=== PATIENT | female | born 1970 | race Caucasian/White ===

== ENCOUNTER 2020-08-25 12:47 | Observation (INO) | payer BC ==
--- NOTE | 2020-08-25 13:00 | EDM.PDOC ---
ED HPI GENERAL MEDICAL PROBLEM - General Chief Complaint: Gastrointestinal Problem Stated Complaint: N/V, DIARRHEA Time Seen by Provider: 08/25/20 12:56 Source of Information: Reports: Patient History Limitations: Reports: No Limitations - History of Present Illness INITIAL COMMENTS - FREE TEXT/NARRATIVE: HISTORY AND PHYSICAL: History of present illness: Patient is a 50-year-old female who presents to the emergency room with complaints of nausea, vomiting and diarrhea that started at 1 AM this morning. She states she went to bed feeling fine but was woken up with nausea and diarrhea. She has generalized abdominal pain and is concerned she may have a bowel obstruction. 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 Patient denies any fever, chills, headache, change in vision, syncope or near syncope. Denies any chest pain, back pain, shortness of breath or cough. Denies any constipation or dysuria. Has not noted any blood in urine or stool. Patient has been eating and drinking appropriately. Review of systems: As per history of present illness and below otherwise all systems reviewed and negative. Past medical history: As per history of present illness and as reviewed below otherwise noncontributory. Surgical history: As per history of present illness and as reviewed below otherwise noncontributory. Social history: See social history for further information Family history: As per history of present illness and as reviewed below otherwise noncontributory. Physical exam: General: Well developed and well nourished 50 year old female. Alert and orientated x 3. Nontoxic in appearance and in no acute distress. Vital signs are stable and have been reviewed by me. Nursing notes were reviewed. HEENT: Atraumatic, normocephalic, pupils equal and reactive bilaterally, negative for conjunctival pallor or scleral icterus, mucous membranes moist, TMs normal bilaterally, throat clear, neck supple, nontender, trachea midline. No drooling or trismus noted. No meningeal signs. No hot potato voice noted. Lungs: Clear to auscultation bilaterally. No wheezes, rales, or rhonchi. Chest nontender. Normal work of breathing, no accessory muscles used. Heart: S1S2, regular rate and rhythm without overt murmur, gallops, or rubs. No JVD. No peripheral edema Abdomen: Soft, nondistended, nontender. Normoactive bowel sounds. Negative for masses or costovertebral tenderness. Skin: Intact, warm, dry. No lesions or rashes noted. Hematologic: No petechiae or purpra. Mucosa appropriate color and normal nail bed color and refill. Extremities: Atraumatic, moves all extremities per self without difficulty or deficits, negative for cords or calf pain. Neurovascular unremarkable. Neuro: Awake, alert, oriented. Cranial nerves II through XII unremarkable. Cerebellum unremarkable. Motor and sensory unremarkable throughout. Exam nonfocal. Psychiatric: Mood and affect are appropriate. Normal thought process. Answering questions appropriately. Notes: *This patient was seen and evaluated during the 2019 SARS-CoV-2 novel coronavirus pandemic period. Community viral transmission is ongoing at time of this encounter and the emergency department is operating under pandemic response procedures. Patient's physical exam demonstrates that she has some generalized abdominal tenderness. She did have a small bout of diarrhea that was liquid while here in the emergency room. The sample was sent to lab. We will do basic lab work and likely CT image of the abdomen due to her previous history. Patient is aware and agreeable to plan of care. Patient does have a leukocytosis. There was a mixup in the lab with her urine, the results were not accurate and had to be canceled. Urine reordered. Unable to do IV contrast due to her GFR, radiologist recommended CT without contrast. CT shows borderline dilated and fluid filled loops of small bowel within the mid abdomen without a transition point, findings could represent early partial small bowel obstruction versus ileus or enteritis. Probable uterine fibroid, measuring up to 4.1 cm. I spoke with Dr. Lino, hospitalist on-call about this patient. He is agreeable to keeping her for further care and management. Patient is currently NPO. Declines wanting anything additional for pain as she is comfortable until "I get moving around". I have talked with the patient about today's findings, in addition to providing specific details for plan of care. Reassessment at the time of disposition demonstrates that the patient is in no acute distress. She is agreeable to admission. Diagnostics: CBC, CMP, Lipase, UA, BC x 2, Lactate Therapeutics: IV fluids, Zofran, Morphine Impression: Partial small bowel obstruction Plan: Observation admission Definitive disposition and diagnosis as appropriate pending reevaluation and review of above. Abdomen Pain Score (Numeric/FACES): 4 - Related Data Allergies Allergy/AdvReac Type Severity Reaction Status Date / Time No Known Allergies Allergy Verified 08/25/20 13:15 Home Meds: Home Meds Lisinopril/Hydrochlorothiazide [Lisinopril-HCTZ 10-12.5 MG] 1 dose PO ASDIRECTED 08/25/20 [History] ED ROS GENERAL - Review of Systems Review Of Systems: Comprehensive ROS is negative, except as noted in HPI. ED EXAM, GI/ABD - Physical Exam Exam: See Below (See dictation) Course - Vital Signs Last Recorded V/S: Last Vital Signs Temp 96.5 F L 08/25/20 13:16 Pulse 100 08/25/20 15:29 Resp 16 08/25/20 15:29 BP 102/61 08/25/20 15:29 Pulse Ox 95 08/25/20 15:29 - Orders/Labs/Meds Orders: Active Orders 24 hr Category Date Time Status Admission Status [Patient Status] [ADT] Stat ADT 08/25/20 16:35 Ordered CAMPYLOBACTER CULT [MREF] Stat Lab 08/25/20 12:56 Received CULTURE BLOOD [BC] Stat Lab 08/25/20 13:12 Received CULTURE BLOOD [BC] Stat Lab 08/25/20 13:30 Received STOOL CULTURE/SHIGA TOXIN [MREF] Stat Lab 08/25/20 12:56 Received UA RFX JEREL AND CULT IF INDIC [URIN] Stat Lab 08/25/20 15:42 Ordered Sodium Chloride 0.9% [Normal Saline] 1,000 ml Med 08/25/20 15:01 Active IV STAT Blood Culture x2 Reflex Set [OM.PC] Stat Oth 08/25/20 13:15 Ordered Medication Orders Sodium Chloride (Normal Saline) 1,000 mls @ 125 mls/hr IV STAT ONE Stop: 08/25/20 23:00 Last Admin: 08/25/20 15:39 Dose: 125 mls/hr Documented by: HARPER Labs: Laboratory Tests 08/25/20 08/25/20 08/25/20 Range/Units 12:56 12:56 13:13 WBC 13.91 H (4.0-11.0) K/uL RBC 5.59 (4.30-5.90) M/uL Hgb 17.7 H (12.0-16.0) g/dL Hct 51.3 H (36.0-46.0) % MCV 91.8 (80.0-98.0) fL MCH 31.7 (27.0-32.0) pg MCHC 34.5 (31.0-37.0) g/dL RDW Std Deviation 47.0 (28.0-62.0) fl RDW Coeff of Craig 14 (11.0-15.0) % Plt Count 296 (150-400) K/uL MPV 12.00 (7.40-12.00) fL Neut % (Auto) 79.3 (48.0-80.0) % Lymph % (Auto) 12.1 L (16.0-40.0) % Cameron % (Auto) 4.1 (0.0-15.0) % Eos % (Auto) 4.2 (0.0-7.0) % Baso % (Auto) 0.3 (0.0-1.5) % Neut # (Auto) 11.0 H (1.4-5.7) K/uL Lymph # (Auto) 1.7 (0.6-2.4) K/uL Cameron # (Auto) 0.6 (0.0-0.8) K/uL Eos # (Auto) 0.6 (0.0-0.7) K/uL Baso # (Auto) 0.0 (0.0-0.1) K/uL Nucleated RBC % 0.0 /100WBC Nucleated RBCs # 0 K/uL Sodium (136-145) mmol/L Potassium (3.5-5.1) mmol/L Chloride (98-107) mmol/L Carbon Dioxide (21.0-32.0) mmol/L BUN (7.0-18.0) mg/dL Creatinine (0.6-1.0) mg/dL Est Cr Clr Drug Dosing mL/min Estimated GFR (MDRD) ml/min Glucose (74-106) mg/dL Lactic Acid (0.4-2.0) mmol/L Calcium (8.5-10.1) mg/dL Total Bilirubin (0.2-1.0) mg/dL AST (15-37) IU/L ALT (14-63) IU/L Alkaline Phosphatase (46-116) U/L Total Protein (6.4-8.2) g/dL Albumin (3.4-5.0) g/dL Globulin (2.6-4.0) g/dL Albumin/Globulin Ratio (0.9-1.6) Lipase (73-393) U/L Urine Color Cancelled Urine Appearance Cancelled Urine pH Cancelled Ur Specific [place] Cancelled Urine Protein Cancelled Urine Glucose (UA) Cancelled Urine Ketones Cancelled Urine Occult Blood Cancelled Urine Nitrite Cancelled Urine Bilirubin Cancelled Urine Ictotest Cancelled Urine Urobilinogen Cancelled Ur Leukocyte Esterase Cancelled U Hyaline Cast (Auto) Cancelled Urine RBC Cancelled Urine WBC Cancelled Ur Epithelial Cells Cancelled Ur Squamous Epith Cells Cancelled Ur Renal Epithelial Cell Cancelled Calcium Oxalate Crystal Cancelled Uric Acid Crystals Cancelled Triple Phos Crystals Cancelled Other Crystals Cancelled Amorphous Sediment Cancelled Urine Bacteria Cancelled Fine Granular Casts Cancelled Coarse Granular Casts Cancelled Waxy Casts Cancelled RBC Casts Cancelled WBC Casts Cancelled Urine Mucus Cancelled Urine Other Cancelled Urine Trichomonas Cancelled Urine Yeast Cancelled Urine Sperm Cancelled Ur Oval Fat Bodies Cancelled Urinalysis Comment Cancelled Urine HCG, Qual Cancelled 08/25/20 08/25/20 Range/Units 13:13 13:45 WBC (4.0-11.0) K/uL RBC (4.30-5.90) M/uL Hgb (12.0-16.0) g/dL Hct (36.0-46.0) % MCV (80.0-98.0) fL MCH (27.0-32.0) pg MCHC (31.0-37.0) g/dL RDW Std Deviation (28.0-62.0) fl RDW Coeff of Craig (11.0-15.0) % Plt Count (150-400) K/uL MPV (7.40-12.00) fL Neut % (Auto) (48.0-80.0) % Lymph % (Auto) (16.0-40.0) % Cameron % (Auto) (0.0-15.0) % Eos % (Auto) (0.0-7.0) % Baso % (Auto) (0.0-1.5) % Neut # (Auto) (1.4-5.7) K/uL Lymph # (Auto) (0.6-2.4) K/uL Cameron # (Auto) (0.0-0.8) K/uL Eos # (Auto) (0.0-0.7) K/uL Baso # (Auto) (0.0-0.1) K/uL Nucleated RBC % /100WBC Nucleated RBCs # K/uL Sodium 130 L (136-145) mmol/L Potassium 4.4 (3.5-5.1) mmol/L Chloride 100 (98-107) mmol/L Carbon Dioxide 23.1 (21.0-32.0) mmol/L BUN 33 H (7.0-18.0) mg/dL Creatinine 1.8 H (0.6-1.0) mg/dL Est Cr Clr Drug Dosing 39.54 mL/min Estimated GFR (MDRD) 29.5 ml/min Glucose 107 H (74-106) mg/dL Lactic Acid 1.6 (0.4-2.0) mmol/L Calcium 8.8 (8.5-10.1) mg/dL Total Bilirubin 0.5 (0.2-1.0) mg/dL AST 36 (15-37) IU/L ALT 47 (14-63) IU/L Alkaline Phosphatase 115 (46-116) U/L Total Protein 8.9 H (6.4-8.2) g/dL Albumin 3.4 (3.4-5.0) g/dL Globulin 5.5 H (2.6-4.0) g/dL Albumin/Globulin Ratio 0.6 L (0.9-1.6) Lipase 101 (73-393) U/L Urine Color Urine Appearance Urine pH Ur Specific [place] Urine Protein Urine Glucose (UA) Urine Ketones Urine Occult Blood Urine Nitrite Urine Bilirubin Urine Ictotest Urine Urobilinogen Ur Leukocyte Esterase U Hyaline Cast (Auto) Urine RBC Urine WBC Ur Epithelial Cells Ur Squamous Epith Cells Ur Renal Epithelial Cell Calcium Oxalate Crystal Uric Acid Crystals Triple Phos Crystals Other Crystals Amorphous Sediment Urine Bacteria Fine Granular Casts Coarse Granular Casts Waxy Casts RBC Casts WBC Casts Urine Mucus Urine Other Urine Trichomonas Urine Yeast Urine Sperm Ur Oval Fat Bodies Urinalysis Comment Urine HCG, Qual Meds: Medications Generic Name Dose Route Start Last Admin Trade Name Freq PRN Reason Stop Dose Admin Sodium Chloride 1,000 mls @ 125 mls/hr 08/25/20 15:01 08/25/20 15:39 Normal Saline IV 08/25/20 23:00 125 mls/hr STAT ONE Administration Discontinued Medications Generic Name Dose Route Start Last Admin Trade Name Best PRN Reason Stop Dose Admin Sodium Chloride 1,000 mls @ 999 mls/hr 08/25/20 13:01 08/25/20 13:31 Normal Saline IV 08/25/20 14:01 999 mls/hr STAT ONE Administration Ceftriaxone Sodium/Dextrose 1 50 mls @ 100 mls/hr 08/25/20 15:01 08/25/20 15:37 gm/ Premix IV 08/25/20 15:30 Not Given ONETIME ONE Morphine Sulfate 4 mg 08/25/20 13:05 08/25/20 13:31 Morphine 4 Mg/Ml Syringe IVPUSH 08/25/20 13:06 4 mg ONETIME ONE Administration Ondansetron HCl 4 mg 08/25/20 13:05 08/25/20 13:31 Ondansetron 4 Mg/2 Ml Sdv IVPUSH 08/25/20 13:06 4 mg ONETIME ONE Administration Departure - Departure Time of Disposition: 16:50 Disposition: Refer to Observation Clinical Impression: Partial small bowel obstruction - Discharge Information Referrals: Fransisca Joy NP [Primary Care Provider] - Forms: ED Department Discharge Sepsis Event Note (ED) - Focused Exam Vital Signs: Vital Signs Temp Pulse Resp BP Pulse Ox 08/25/20 15:29 100 16 102/61 95 08/25/20 13:16 96.5 F L 130 H 20 127/90 96 - My Orders Last 24 Hours: My Active Orders 08/25/20 12:56 CAMPYLOBACTER CULT [MREF] Stat STOOL CULTURE/SHIGA TOXIN [MREF] Stat 08/25/20 13:12 CULTURE BLOOD [BC] Stat 08/25/20 13:15 Blood Culture x2 Reflex Set [OM.PC] Stat 08/25/20 13:30 CULTURE BLOOD [BC] Stat 08/25/20 15:01 Sodium Chloride 0.9% [Normal Saline] 1,000 ml IV STAT 08/25/20 15:42 UA RFX JEREL AND CULT IF INDIC [URIN] Stat 08/25/20 16:35 Admission Status [Patient Status] [ADT] Stat - Assessment/Plan Last 24 Hours: My Active Orders 08/25/20 12:56 CAMPYLOBACTER CULT [MREF] Stat STOOL CULTURE/SHIGA TOXIN [MREF] Stat 08/25/20 13:12 CULTURE BLOOD [BC] Stat 08/25/20 13:15 Blood Culture x2 Reflex Set [OM.PC] Stat 08/25/20 13:30 CULTURE BLOOD [BC] Stat 08/25/20 15:01 Sodium Chloride 0.9% [Normal Saline] 1,000 ml IV STAT 08/25/20 15:42 UA RFX JEREL AND CULT IF INDIC [URIN] Stat 08/25/20 16:35 Admission Status [Patient Status] [ADT] Stat
[2020-08-25] MEDS ORDERED: Sodium Chloride 0.9% 1,000 ML IV ONE ×2 (13:01→15:01)
[2020-08-25] MEDS ORDERED: Ondansetron 4 MG/2 ML SDV IVPUSH ONE (13:05)
[2020-08-25] MEDS ORDERED: Morphine 4 MG/ML Syringe IVPUSH ONE (13:05)
--- NOTE | 2020-08-25 13:19 | PCM.SN.2 ---
- Free Text/Narrative Note: EKG at 1313 hrs. sinus tachycardia heart rate 122 DE interval 156. QT duration 436. [place] [place] 62. Possible left atrial enlargement. QRS normal ST and T normal no prior for comparison. Impression tachycardia with no obvious acute injury
[2020-08-25 14:35] LABS: CARBON DIOXIDE,CO2 23.1 mmol/L (21.0-32.0); POTASSIUM,K 4.4 mmol/L (3.5-5.1)
[2020-08-25] MEDS ORDERED: cefTRIAXone 1 GM in Premix Bag 1 BAG IV ONE (15:01)
--- NOTE | 2020-08-25 16:19 | CT ---
INDICATION: Abdominal pain, nausea, vomiting, concern for bowel obstruction TECHNIQUE: CT abdomen and pelvis without contrast. COMPARISON: None available FINDINGS: The visualized portions of the lung bases are clear. Evaluation of the abdominal viscera is limited due to lack of IV contrast, however the liver, spleen, pancreas and adrenal glands are unremarkable. The gallbladder is nondistended. The kidneys are negative for hydronephrosis or nephrolithiasis. The bladder is minimally distended and unremarkable. The uterus is somewhat lobulated with a larger exophytic area at the uterine fundus, measuring approximately 4.1 cm, suggestive of a uterine fibroid. There are postsurgical changes of the stomach. There is a large fat containing periumbilical hernia. The neck of the hernia measures approximately 6.0 cm. There are a few borderline dilated fluid filled loops of small bowel within the mid abdomen, measuring 3.0 cm. No abrupt transition point is visualized. Negative for intraperitoneal free air fluid. No pneumatosis or portal venous gas. The visualized osseous structures are unremarkable for patient age. IMPRESSION: 1. Borderline dilated and fluid filled loops of small bowel within the mid abdomen without a transition point, findings could represent early partial small bowel obstruction versus ileus or enteritis. 2. Probable uterine fibroid, measuring up to 4.1 cm. Please note that all CT scans at this facility use dose modulation, iterative reconstruction, and/or weight-based dosing when appropriate to reduce radiation dose to as low as reasonably achievable. Dictated by Holly White MD @ 08/25/2020 4:18:[address] Holly White @ Aug 25 2020 4:18PM
[2020-08-25] MEDS ORDERED: Ketorolac 15 MG/ML SDV IVPUSH ONE (17:00)
--- NOTE | 2020-08-25 18:09 | PCM.HP.2 ---
H&P History of Present Illness - General Date of Service: 08/25/20 Admit Problem/Dx: Admission Diagnosis/Problem Admission Diagnosis/Problem Small bowel obstruction Source of Information: Patient History Limitations: Reports: No Limitations - History of Present Illness Initial Comments - Free Text/Narative: Patient is a 50-year-old female with a significant past medical history of hypertension, gastroplasty 30 years prior, presenting to the ED this morning after being awoken in the middle the night around 1 AM with sudden onset of nausea/vomiting and diarrhea. Patient states having excess amounts of diarrhea numbering in between 15-20 times and having vomited 10-12 times since last night. Patient has had episodes like this in the past secondary to adhesions/scar tissue from previous surgeries most likely secondary to a gastroplasty from 30 years prior. Other surgical history includes tubal ligation but no other significant abdominal surgeries. Patient otherwise denies any fevers, chills, body aches, chest pain, shortness of breath, fever, chills, hematuria, urinary urgency/frequency. Up until last night she has been taking and eating appropriately without any significant issues. Patient also states that she has been on antibiotics, most likely Bactrim, for a possible skin abscess/infection over the right breast is currently alf through her course. ED course: Vitals 112/86. Pulse 97. O2 sat 95% room air. Tachycardia initially noted on arrival however had improved to 97. Abdominal CT: Borderline dilated fluid-filled loops of small bowel within the mid abdomen without a transition point, findings could represent early partial small bowel obstruction versus ileus or enteritis. 2 L NS bolus provided, one dose of morphine 4 mg/ketorolac 15. 1 g Rocephin given stool studies and UA/culture ordered. Bedside: Endorses similar story as above and abdominal pain and nausea and vomiting have improved and pain only returns with movement. Patient otherwise states that she feels thirsty but denies any significant appetite. Abdomen Pain Score (Numeric/FACES): 4 - Related Data Allergies/Adverse Reactions: Allergies Allergy/AdvReac Type Severity Reaction Status Date / Time No Known Allergies Allergy Verified 08/25/20 18:16 Home Medications: Home Meds Lisinopril/Hydrochlorothiazide [Lisinopril-Hctz 20-25 mg Tab] 20 - 25 mg PO DAILY 08/25/20 [History] Sulfamethoxazole/Trimethoprim [Sulfamethoxazole-Tmp Ds Tablet] 1 each PO DAILY 08/25/20 [History] amLODIPine [Norvasc] 5 mg PO DAILY 08/25/20 [History] Past Medical History HEENT History: Reports: Impaired Vision Cardiovascular History: Reports: Hypertension Respiratory History: Reports: None Gastrointestinal History: Reports: Bowel Obstruction Genitourinary History: Reports: None 3RD MATE History: Reports: None Musculoskeletal History: Reports: None Neurological History: Reports: None Psychiatric History: Reports: None Endocrine/Metabolic History: Reports: None Hematologic History: Reports: None Other Dermatologic History: breast cysts - Infectious Disease History Infectious Disease History: Reports: Chicken Pox Social & Family History - Tobacco Use Tobacco Use Status *Q: Current Every Day Tobacco User Years of Tobacco use: 25 Packs/Tins Daily: 1 - Caffeine Use Caffeine Use: Reports: None - Recreational Drug Use Recreational Drug Use: No H&P Review of Systems - Review of Systems: Review Of Systems: See Below General: Denies: Fever, Chills, Weakness, Fatigue HEENT: Reports: No Symptoms Pulmonary: Reports: No Symptoms Cardiovascular: Reports: No Symptoms Gastrointestinal: Reports: Abdominal Pain, Diarrhea, Flatus, Nausea. Denies: Bloody Stool, Melena, Stool Incontinence, Vomiting Genitourinary: Reports: No Symptoms Musculoskeletal: Reports: No Symptoms Psychiatric: Reports: No Symptoms Neurological: Reports: No Symptoms Exam - Exam Exam: See Below - Vital Signs Vital Signs: Last Vital Signs Temp 96.5 F L 08/25/20 13:16 Pulse 97 08/25/20 17:47 Resp 16 08/25/20 17:47 BP 112/86 08/25/20 17:47 Pulse Ox 95 08/25/20 17:47 Weight: 119.295 kg - Exam Quality Assessment: No: Supplemental Oxygen General: Alert, Oriented HEENT: EOMI Neck: Supple, Trachea Midline Lungs: Normal Respiratory Effort, Other (mild wheeze in anterior lung justice ) Cardiovascular: Regular Rate, Regular Rhythm GI/Abdominal Exam: Soft, Other (no tenderness w. deep palaption; pain mostly in periumbilical region; no flank tendernessl; large vertical scarno rosales in mid abdomen from previous gastroplasty ) Extremities: Normal Inspection Skin: Warm Neurological: Cranial Nerves Intact Psychiatric: Alert, Normal Mood (obeses female /morbid ) - Patient Data Lab Results Last 24 hrs: Laboratory Results - last 24 hr 08/25/20 08/25/20 08/25/20 Range/Units 12:56 12:56 13:13 WBC 13.91 H (4.0-11.0) K/uL RBC 5.59 (4.30-5.90) M/uL Hgb 17.7 H (12.0-16.0) g/dL Hct 51.3 H (36.0-46.0) % MCV 91.8 (80.0-98.0) fL MCH 31.7 (27.0-32.0) pg MCHC 34.5 (31.0-37.0) g/dL RDW Std Deviation 47.0 (28.0-62.0) fl RDW Coeff of Craig 14 (11.0-15.0) % Plt Count 296 (150-400) K/uL MPV 12.00 (7.40-12.00) fL Neut % (Auto) 79.3 (48.0-80.0) % Lymph % (Auto) 12.1 L (16.0-40.0) % [place] % (Auto) 4.1 (0.0-15.0) % Eos % (Auto) 4.2 (0.0-7.0) % Baso % (Auto) 0.3 (0.0-1.5) % Neut # (Auto) 11.0 H (1.4-5.7) K/uL Lymph # (Auto) 1.7 (0.6-2.4) K/uL [place] # (Auto) 0.6 (0.0-0.8) K/uL Eos # (Auto) 0.6 (0.0-0.7) K/uL Baso # (Auto) 0.0 (0.0-0.1) K/uL Nucleated RBC % 0.0 /100WBC Nucleated RBCs # 0 K/uL Sodium (136-145) mmol/L Potassium (3.5-5.1) mmol/L Chloride (98-107) mmol/L Carbon Dioxide (21.0-32.0) mmol/L BUN (7.0-18.0) mg/dL Creatinine (0.6-1.0) mg/dL Est Cr Clr Drug Dosing mL/min Estimated GFR (MDRD) ml/min Glucose (74-106) mg/dL Lactic Acid (0.4-2.0) mmol/L Calcium (8.5-10.1) mg/dL Total Bilirubin (0.2-1.0) mg/dL AST (15-37) IU/L ALT (14-63) IU/L Alkaline Phosphatase (46-116) U/L Total Protein (6.4-8.2) g/dL Albumin (3.4-5.0) g/dL Globulin (2.6-4.0) g/dL Albumin/Globulin Ratio (0.9-1.6) Lipase (73-393) U/L Urine Color Cancelled Urine Appearance Cancelled Urine pH Cancelled Ur Specific [place] Cancelled Urine Protein Cancelled Urine Glucose (UA) Cancelled Urine Ketones Cancelled Urine Occult Blood Cancelled Urine Nitrite Cancelled Urine Bilirubin Cancelled Urine Ictotest Cancelled Urine Urobilinogen Cancelled Ur Leukocyte Esterase Cancelled U Hyaline Cast (Auto) Cancelled Urine RBC Cancelled Urine WBC Cancelled Ur Epithelial Cells Cancelled Ur Squamous Epith Cells Cancelled Ur Renal Epithelial Cell Cancelled Calcium Oxalate Crystal Cancelled Uric Acid Crystals Cancelled Triple Phos Crystals Cancelled Other Crystals Cancelled Amorphous Sediment Cancelled Urine Bacteria Cancelled Fine Granular Casts Cancelled Coarse Granular Casts Cancelled Waxy Casts Cancelled RBC Casts Cancelled WBC Casts Cancelled Urine Mucus Cancelled Urine Other Cancelled Urine Trichomonas Cancelled Urine Yeast Cancelled Urine Sperm Cancelled Ur Oval Fat Bodies Cancelled Urinalysis Comment Cancelled Urine HCG, Qual Cancelled SARS-CoV-2 RNA (SHELL) (NEGATIVE) 08/25/20 08/25/20 08/25/20 Range/Units 13:13 13:45 16:36 WBC (4.0-11.0) K/uL RBC (4.30-5.90) M/uL Hgb (12.0-16.0) g/dL Hct (36.0-46.0) % MCV (80.0-98.0) fL MCH (27.0-32.0) pg MCHC (31.0-37.0) g/dL RDW Std Deviation (28.0-62.0) fl RDW Coeff of Craig (11.0-15.0) % Plt Count (150-400) K/uL MPV (7.40-12.00) fL Neut % (Auto) (48.0-80.0) % Lymph % (Auto) (16.0-40.0) % [place] % (Auto) (0.0-15.0) % Eos % (Auto) (0.0-7.0) % Baso % (Auto) (0.0-1.5) % Neut # (Auto) (1.4-5.7) K/uL Lymph # (Auto) (0.6-2.4) K/uL [place] # (Auto) (0.0-0.8) K/uL Eos # (Auto) (0.0-0.7) K/uL Baso # (Auto) (0.0-0.1) K/uL Nucleated RBC % /100WBC Nucleated RBCs # K/uL Sodium 130 L (136-145) mmol/L Potassium 4.4 (3.5-5.1) mmol/L Chloride 100 (98-107) mmol/L Carbon Dioxide 23.1 (21.0-32.0) mmol/L BUN 33 H (7.0-18.0) mg/dL Creatinine 1.8 H (0.6-1.0) mg/dL Est Cr Clr Drug Dosing 39.54 mL/min Estimated GFR (MDRD) 29.5 ml/min Glucose 107 H (74-106) mg/dL Lactic Acid 1.6 (0.4-2.0) mmol/L Calcium 8.8 (8.5-10.1) mg/dL Total Bilirubin 0.5 (0.2-1.0) mg/dL AST 36 (15-37) IU/L ALT 47 (14-63) IU/L Alkaline Phosphatase 115 (46-116) U/L Total Protein 8.9 H (6.4-8.2) g/dL Albumin 3.4 (3.4-5.0) g/dL Globulin 5.5 H (2.6-4.0) g/dL Albumin/Globulin Ratio 0.6 L (0.9-1.6) Lipase 101 (73-393) U/L Urine Color Urine Appearance Urine pH Ur Specific [place] Urine Protein Urine Glucose (UA) Urine Ketones Urine Occult Blood Urine Nitrite Urine Bilirubin Urine Ictotest Urine Urobilinogen Ur Leukocyte Esterase U Hyaline Cast (Auto) Urine RBC Urine WBC Ur Epithelial Cells Ur Squamous Epith Cells Ur Renal Epithelial Cell Calcium Oxalate Crystal Uric Acid Crystals Triple Phos Crystals Other Crystals Amorphous Sediment Urine Bacteria Fine Granular Casts Coarse Granular Casts Waxy Casts RBC Casts WBC Casts Urine Mucus Urine Other Urine Trichomonas Urine Yeast Urine Sperm Ur Oval Fat Bodies Urinalysis Comment Urine HCG, Qual SARS-CoV-2 RNA (SHELL) NEGATIVE (NEGATIVE) Result Diagrams: 08/26/20 05:25 08/26/20 05:25 Sepsis Event Note - Evaluation Sepsis Screening Result: Possible Sepsis Risk - Focused Exam Vital Signs: Vital Signs Temp Pulse Resp BP Pulse Ox 08/25/20 17:47 97 16 112/86 95 08/25/20 17:15 98 16 91/52 L 95 08/25/20 15:29 100 16 102/61 95 08/25/20 13:16 96.5 F L 130 H 20 127/90 96 - Problem List (1) Abdominal pain SNOMED Code(s): 03974737 ICD Code: R10.9 - UNSPECIFIED ABDOMINAL PAIN Status: Acute Current Visit: Yes (2) Intractable nausea and vomiting SNOMED Code(s): 252393996 ICD Code: R11.2 - NAUSEA WITH VOMITING, UNSPECIFIED Status: Acute Current Visit: Yes (3) Partial small bowel obstruction SNOMED Code(s): 557285438 ICD Code: K56.600 - PARTIAL INTESTINAL OBSTRUCTION, UNSPECIFIED TO CAUSE Status: Acute Current Visit: Yes Problem List Initiated/Reviewed/Updated: Yes Orders Last 24hrs: Active Orders 24 hr Category Date Time Status Admission Status [Patient Status] [ADT] Stat ADT 08/25/20 16:35 Active CAMPYLOBACTER CULT [MREF] Stat Lab 08/25/20 12:56 Received CULTURE BLOOD [BC] Stat Lab 08/25/20 13:12 Received CULTURE BLOOD [BC] Stat Lab 08/25/20 13:30 Received STOOL CULTURE/SHIGA TOXIN [MREF] Stat Lab 08/25/20 12:56 Received UA RFX JEREL AND CULT IF INDIC [URIN] Stat Lab 08/25/20 15:42 Ordered Sodium Chloride 0.9% [Normal Saline] 1,000 ml Med 08/25/20 15:01 Active IV STAT Blood Culture x2 Reflex Set [OM.PC] Stat Oth 08/25/20 13:15 Ordered Medication Orders Sodium Chloride (Normal Saline) 1,000 mls @ 125 mls/hr IV STAT ONE Stop: 08/25/20 23:00 Last Admin: 08/25/20 15:39 Dose: 125 mls/hr Documented by: HARPER Assessment/Plan Comment:: Assessment: 1. Intractable nausea and vomiting in the setting of possible ileus versus enteritis versus partial small bowel obstruction 2. Leukocytosis 3. Hyponatremia 4. KAYLEE 5. Past medical history: Gastroplasty with history of adhesional lysis 6. Past medical history: Morbid obesity, hypertension, tobacco abuser x 30 years Plan Admit to observation. Full code. I's and O's per routine vitals per routine DVT prophylaxis Heparin 5000 GI prophylaxis omeprazole Diet n.p.o. with ice chips 1. Abdominal pain/intractable nausea/vomiting: Previous history of small bowel obstruction in the setting of adhesion secondary to gastroplasty 30 years prior; previous episode 3 years prior with surgical intervention. This occurred in [place] and patient is unsure of exact details. Of note patient is currently alf through her antibiotic regimen for a skin infection over her right breast; antibiotic is most likely Bactrim. Continue IV fluids, n.p.o. with ice chips, continue to monitor for response. May consider NG tube placement however patient is not experiencing significant abdominal pain and no distention noted on examination. Nausea and vomiting has improved. Stool studies have been ordered. UA pending Ceftriaxone already provided in the ED. 2. Past medical history: Hypertension: Restart medication when appropriate 3. Hyponatremia: IV fluids ; recheck in AM 4. KAYLEE: monitor for response w. IV hydration
[2020-08-25] MEDS ORDERED: Morphine 2 MG/ML SYRINGE IVPUSH PRN (18:12)
[2020-08-25] MEDS ORDERED: Ondansetron 4 MG Tab.DIS PO PRN (18:12)
[2020-08-25] MEDS: Nicotine 14 MG/24 Hr Patch TRDERM SCH (18:52)
[2020-08-25] MEDS: Heparin Sodium 5,000 Units/ML Vial SUBCUT SCH (23:22)
[2020-08-26] MEDS: Sodium Chloride 0.9% 1,000 ML IV SCH ×3 (01:50→18:43)
[2020-08-26 06:17] LABS: CARBON DIOXIDE,CO2 20.9 mmol/L (21.0-32.0); POTASSIUM,K 4.1 mmol/L (3.5-5.1)
[2020-08-26] MEDS: Heparin Sodium 5,000 Units/ML Vial SUBCUT SCH ×3 (06:21→22:59)
[2020-08-26] MEDS: Nicotine 14 MG/24 Hr Patch TRDERM SCH (08:04)
[2020-08-26] MEDS: amLODIPine 5 MG Tab PO SCH (08:11)
--- NOTE | 2020-08-26 12:47 | PCM.PN ---
- General Info Date of Service: 08/26/20 Subjective Update: Bedside: no acute distress. Mentions n/v improved and resolved. Passing gas but new BM since admission Functional Status: Reports: Pain Controlled - Review of Systems General: Reports: No Symptoms HEENT: Reports: No Symptoms Pulmonary: Reports: No Symptoms Gastrointestinal: Reports: No Symptoms, Flatus. Denies: Diarrhea, Nausea, Vomiting Genitourinary: Reports: No Symptoms Neurological: Reports: No Symptoms - Patient Data Vitals - Most Recent: Last Vital Signs Temp 97.3 F 08/26/20 12:00 Pulse 75 08/26/20 12:00 Resp 17 08/26/20 12:00 BP 113/88 08/26/20 12:00 Pulse Ox 99 08/26/20 12:00 Weight - Most Recent: 117.526 kg I&O - Last 24 Hours: Intake & Output 08/25/20 08/26/20 08/26/20 22:59 06:59 14:59 Intake Total 1215 Output Total 400 Balance 815 Lab Results Last 24 Hours: Laboratory Results - last 24 hr 08/25/20 08/25/20 08/25/20 Range/Units 12:56 12:56 13:13 WBC 13.91 H (4.0-11.0) K/uL RBC 5.59 (4.30-5.90) M/uL Hgb 17.7 H (12.0-16.0) g/dL Hct 51.3 H (36.0-46.0) % MCV 91.8 (80.0-98.0) fL MCH 31.7 (27.0-32.0) pg MCHC 34.5 (31.0-37.0) g/dL RDW Std Deviation 47.0 (28.0-62.0) fl RDW Coeff of Craig 14 (11.0-15.0) % Plt Count 296 (150-400) K/uL MPV 12.00 (7.40-12.00) fL Neut % (Auto) 79.3 (48.0-80.0) % Lymph % (Auto) 12.1 L (16.0-40.0) % [place] % (Auto) 4.1 (0.0-15.0) % Eos % (Auto) 4.2 (0.0-7.0) % Baso % (Auto) 0.3 (0.0-1.5) % Neut # (Auto) 11.0 H (1.4-5.7) K/uL Lymph # (Auto) 1.7 (0.6-2.4) K/uL [place] # (Auto) 0.6 (0.0-0.8) K/uL Eos # (Auto) 0.6 (0.0-0.7) K/uL Baso # (Auto) 0.0 (0.0-0.1) K/uL Nucleated RBC % 0.0 /100WBC Nucleated RBCs # 0 K/uL Sodium (136-145) mmol/L Potassium (3.5-5.1) mmol/L Chloride (98-107) mmol/L Carbon Dioxide (21.0-32.0) mmol/L BUN (7.0-18.0) mg/dL Creatinine (0.6-1.0) mg/dL Est Cr Clr Drug Dosing mL/min Estimated GFR (MDRD) ml/min Glucose (74-106) mg/dL Lactic Acid (0.4-2.0) mmol/L Calcium (8.5-10.1) mg/dL Total Bilirubin (0.2-1.0) mg/dL AST (15-37) IU/L ALT (14-63) IU/L Alkaline Phosphatase (46-116) U/L Total Protein (6.4-8.2) g/dL Albumin (3.4-5.0) g/dL Globulin (2.6-4.0) g/dL Albumin/Globulin Ratio (0.9-1.6) Lipase (73-393) U/L Urine Color Cancelled Urine Appearance Cancelled Urine pH Cancelled Ur Specific [place] Cancelled Urine Protein Cancelled Urine Glucose (UA) Cancelled Urine Ketones Cancelled Urine Occult Blood Cancelled Urine Nitrite Cancelled Urine Bilirubin Cancelled Urine Ictotest Cancelled Urine Urobilinogen Cancelled Ur Leukocyte Esterase Cancelled U Hyaline Cast (Auto) Cancelled Urine RBC Cancelled Urine WBC Cancelled Ur Epithelial Cells Cancelled Ur Squamous Epith Cells Cancelled Ur Renal Epithelial Cell Cancelled Calcium Oxalate Crystal Cancelled Uric Acid Crystals Cancelled Triple Phos Crystals Cancelled Other Crystals Cancelled Amorphous Sediment Cancelled Urine Bacteria Cancelled Fine Granular Casts Cancelled Coarse Granular Casts Cancelled Waxy Casts Cancelled RBC Casts Cancelled WBC Casts Cancelled Urine Mucus Cancelled Urine Other Cancelled Urine Trichomonas Cancelled Urine Yeast Cancelled Urine Sperm Cancelled Ur Oval Fat Bodies Cancelled Urinalysis Comment Cancelled Urine HCG, Qual Cancelled SARS-CoV-2 RNA (SHELL) (NEGATIVE) 08/25/20 08/25/20 08/25/20 Range/Units 13:13 13:45 16:36 WBC (4.0-11.0) K/uL RBC (4.30-5.90) M/uL Hgb (12.0-16.0) g/dL Hct (36.0-46.0) % MCV (80.0-98.0) fL MCH (27.0-32.0) pg MCHC (31.0-37.0) g/dL RDW Std Deviation (28.0-62.0) fl RDW Coeff of Craig (11.0-15.0) % Plt Count (150-400) K/uL MPV (7.40-12.00) fL Neut % (Auto) (48.0-80.0) % Lymph % (Auto) (16.0-40.0) % [place] % (Auto) (0.0-15.0) % Eos % (Auto) (0.0-7.0) % Baso % (Auto) (0.0-1.5) % Neut # (Auto) (1.4-5.7) K/uL Lymph # (Auto) (0.6-2.4) K/uL [place] # (Auto) (0.0-0.8) K/uL Eos # (Auto) (0.0-0.7) K/uL Baso # (Auto) (0.0-0.1) K/uL Nucleated RBC % /100WBC Nucleated RBCs # K/uL Sodium 130 L (136-145) mmol/L Potassium 4.4 (3.5-5.1) mmol/L Chloride 100 (98-107) mmol/L Carbon Dioxide 23.1 (21.0-32.0) mmol/L BUN 33 H (7.0-18.0) mg/dL Creatinine 1.8 H (0.6-1.0) mg/dL Est Cr Clr Drug Dosing 39.54 mL/min Estimated GFR (MDRD) 29.5 ml/min Glucose 107 H (74-106) mg/dL Lactic Acid 1.6 (0.4-2.0) mmol/L Calcium 8.8 (8.5-10.1) mg/dL Total Bilirubin 0.5 (0.2-1.0) mg/dL AST 36 (15-37) IU/L ALT 47 (14-63) IU/L Alkaline Phosphatase 115 (46-116) U/L Total Protein 8.9 H (6.4-8.2) g/dL Albumin 3.4 (3.4-5.0) g/dL Globulin 5.5 H (2.6-4.0) g/dL Albumin/Globulin Ratio 0.6 L (0.9-1.6) Lipase 101 (73-393) U/L Urine Color Urine Appearance Urine pH Ur Specific [place] Urine Protein Urine Glucose (UA) Urine Ketones Urine Occult Blood Urine Nitrite Urine Bilirubin Urine Ictotest Urine Urobilinogen Ur Leukocyte Esterase U Hyaline Cast (Auto) Urine RBC Urine WBC Ur Epithelial Cells Ur Squamous Epith Cells Ur Renal Epithelial Cell Calcium Oxalate Crystal Uric Acid Crystals Triple Phos Crystals Other Crystals Amorphous Sediment Urine Bacteria Fine Granular Casts Coarse Granular Casts Waxy Casts RBC Casts WBC Casts Urine Mucus Urine Other Urine Trichomonas Urine Yeast Urine Sperm Ur Oval Fat Bodies Urinalysis Comment Urine HCG, Qual SARS-CoV-2 RNA (SHELL) NEGATIVE (NEGATIVE) 08/25/20 08/26/20 08/26/20 Range/Units 23:25 05:25 05:25 WBC 6.45 (4.0-11.0) K/uL RBC 4.69 (4.30-5.90) M/uL Hgb 14.4 (12.0-16.0) g/dL Hct 43.9 (36.0-46.0) % MCV 93.6 (80.0-98.0) fL MCH 30.7 (27.0-32.0) pg MCHC 32.8 (31.0-37.0) g/dL RDW Std Deviation 48.6 (28.0-62.0) fl RDW Coeff of Craig 14 (11.0-15.0) % Plt Count 227 (150-400) K/uL MPV 11.70 (7.40-12.00) fL Neut % (Auto) 52.0 (48.0-80.0) % Lymph % (Auto) 35.0 (16.0-40.0) % [place] % (Auto) 6.7 (0.0-15.0) % Eos % (Auto) 5.7 (0.0-7.0) % Baso % (Auto) 0.6 (0.0-1.5) % Neut # (Auto) 3.4 (1.4-5.7) K/uL Lymph # (Auto) 2.3 (0.6-2.4) K/uL [place] # (Auto) 0.4 (0.0-0.8) K/uL Eos # (Auto) 0.4 (0.0-0.7) K/uL Baso # (Auto) 0.0 (0.0-0.1) K/uL Nucleated RBC % 0.0 /100WBC Nucleated RBCs # 0 K/uL Sodium 134 L (136-145) mmol/L Potassium 4.1 (3.5-5.1) mmol/L Chloride 103 (98-107) mmol/L Carbon Dioxide 20.9 L (21.0-32.0) mmol/L BUN 31 H (7.0-18.0) mg/dL Creatinine 1.3 H (0.6-1.0) mg/dL Est Cr Clr Drug Dosing 54.74 mL/min Estimated GFR (MDRD) 43.0 ml/min Glucose 90 (74-106) mg/dL Lactic Acid (0.4-2.0) mmol/L Calcium 8.0 L (8.5-10.1) mg/dL Total Bilirubin 0.3 (0.2-1.0) mg/dL AST 28 (15-37) IU/L ALT 34 (14-63) IU/L Alkaline Phosphatase 89 (46-116) U/L Total Protein 7.3 (6.4-8.2) g/dL Albumin 2.8 L (3.4-5.0) g/dL Globulin 4.5 H (2.6-4.0) g/dL Albumin/Globulin Ratio 0.6 L (0.9-1.6) Lipase (73-393) U/L Urine Color YELLOW Urine Appearance CLEAR Urine pH 6.0 Ur Specific [place] >= 1.030 Urine Protein NEGATIVE Urine Glucose (UA) NEGATIVE Urine Ketones NEGATIVE Urine Occult Blood NEGATIVE Urine Nitrite NEGATIVE Urine Bilirubin NEGATIVE Urine Ictotest Urine Urobilinogen 0.2 Ur Leukocyte Esterase NEGATIVE U Hyaline Cast (Auto) Urine RBC Urine WBC Ur Epithelial Cells Ur Squamous Epith Cells Ur Renal Epithelial Cell Calcium Oxalate Crystal Uric Acid Crystals Triple Phos Crystals Other Crystals Amorphous Sediment Urine Bacteria Fine Granular Casts Coarse Granular Casts Waxy Casts RBC Casts WBC Casts Urine Mucus Urine Other Urine Trichomonas Urine Yeast Urine Sperm Ur Oval Fat Bodies Urinalysis Comment Urine HCG, Qual SARS-CoV-2 RNA (SHELL) (NEGATIVE) Med Orders - Current: Current Medications Amlodipine Besylate (Amlodipine 5 Mg Tab) 5 mg PO DAILY [facility] Last Admin: 08/26/20 08:11 Dose: 5 mg Documented by: Heparin Sodium (Porcine) (Heparin Sodium 5,000 Units/Ml Vial) 5,000 units SUBCUT Q8H [facility] Last Admin: 08/26/20 06:21 Dose: 5,000 units Documented by: Sodium Chloride (Normal Saline) 1,000 mls @ 125 mls/hr IV ASDIRECTED [facility] Last Admin: 08/26/20 10:15 Dose: 125 mls/hr Documented by: Morphine Sulfate (Morphine 2 Mg/Ml Syringe) 2 mg IVPUSH Q2H PRN PRN Reason: Pain (severe 7-10) Stop: 08/26/20 18:13 Nicotine (Nicotine 14 Mg/24 Hr Patch) 14 mg TRDERM DAILY [facility] Last Admin: 08/26/20 08:04 Dose: Not Given Documented by: Ondansetron HCl (Ondansetron 4 Mg Tab.Dis) 4 mg PO Q4H PRN PRN Reason: nausea, able to take PO Discontinued Medications Sodium Chloride (Normal Saline) 1,000 mls @ 999 mls/hr IV STAT ONE Stop: 08/25/20 14:01 Last Admin: 08/25/20 13:31 Dose: 999 mls/hr Documented by: Ceftriaxone Sodium/Dextrose 1 (gm/ Premix) 50 mls @ 100 mls/hr IV ONETIME ONE Stop: 08/25/20 15:30 Last Admin: 08/25/20 15:37 Dose: Not Given Documented by: Sodium Chloride (Normal Saline) 1,000 mls @ 125 mls/hr IV STAT ONE Stop: 08/25/20 23:00 Last Admin: 08/25/20 15:39 Dose: 125 mls/hr Documented by: Ketorolac Tromethamine (Ketorolac 15 Mg/Ml Sdv) 15 mg IVPUSH ONETIME ONE Stop: 08/25/20 17:01 Last Admin: 08/25/20 17:24 Dose: 15 mg Documented by: Morphine Sulfate (Morphine 4 Mg/Ml Syringe) 4 mg IVPUSH ONETIME ONE Stop: 08/25/20 13:06 Last Admin: 08/25/20 13:31 Dose: 4 mg Documented by: Ondansetron HCl (Ondansetron 4 Mg/2 Ml Sdv) 4 mg IVPUSH ONETIME ONE Stop: 08/25/20 13:06 Last Admin: 08/25/20 13:31 Dose: 4 mg Documented by: - Exam General: Alert, Oriented HEENT: EOMI Neck: Supple Lungs: Normal Respiratory Effort, Wheezing Cardiovascular: Regular Rate, Regular Rhythm GI/Abdominal Exam: Soft, Non-Tender Skin: Other (area of redness noted over right breast ; unchanged from admssion ) Neurological: No New Focal Deficit Psy/Mental Status: Alert, Normal Mood - Patient Data Lab Results Last 24 hrs: Laboratory Results - last 24 hr 08/25/20 08/25/20 08/25/20 Range/Units 12:56 12:56 13:13 WBC 13.91 H (4.0-11.0) K/uL RBC 5.59 (4.30-5.90) M/uL Hgb 17.7 H (12.0-16.0) g/dL Hct 51.3 H (36.0-46.0) % MCV 91.8 (80.0-98.0) fL MCH 31.7 (27.0-32.0) pg MCHC 34.5 (31.0-37.0) g/dL RDW Std Deviation 47.0 (28.0-62.0) fl RDW Coeff of Craig 14 (11.0-15.0) % Plt Count 296 (150-400) K/uL MPV 12.00 (7.40-12.00) fL Neut % (Auto) 79.3 (48.0-80.0) % Lymph % (Auto) 12.1 L (16.0-40.0) % [place] % (Auto) 4.1 (0.0-15.0) % Eos % (Auto) 4.2 (0.0-7.0) % Baso % (Auto) 0.3 (0.0-1.5) % Neut # (Auto) 11.0 H (1.4-5.7) K/uL Lymph # (Auto) 1.7 (0.6-2.4) K/uL [place] # (Auto) 0.6 (0.0-0.8) K/uL Eos # (Auto) 0.6 (0.0-0.7) K/uL Baso # (Auto) 0.0 (0.0-0.1) K/uL Nucleated RBC % 0.0 /100WBC Nucleated RBCs # 0 K/uL Sodium (136-145) mmol/L Potassium (3.5-5.1) mmol/L Chloride (98-107) mmol/L Carbon Dioxide (21.0-32.0) mmol/L BUN (7.0-18.0) mg/dL Creatinine (0.6-1.0) mg/dL Est Cr Clr Drug Dosing mL/min Estimated GFR (MDRD) ml/min Glucose (74-106) mg/dL Lactic Acid (0.4-2.0) mmol/L Calcium (8.5-10.1) mg/dL Total Bilirubin (0.2-1.0) mg/dL AST (15-37) IU/L ALT (14-63) IU/L Alkaline Phosphatase (46-116) U/L Total Protein (6.4-8.2) g/dL Albumin (3.4-5.0) g/dL Globulin (2.6-4.0) g/dL Albumin/Globulin Ratio (0.9-1.6) Lipase (73-393) U/L Urine Color Cancelled Urine Appearance Cancelled Urine pH Cancelled Ur Specific [place] Cancelled Urine Protein Cancelled Urine Glucose (UA) Cancelled Urine Ketones Cancelled Urine Occult Blood Cancelled Urine Nitrite Cancelled Urine Bilirubin Cancelled Urine Ictotest Cancelled Urine Urobilinogen Cancelled Ur Leukocyte Esterase Cancelled U Hyaline Cast (Auto) Cancelled Urine RBC Cancelled Urine WBC Cancelled Ur Epithelial Cells Cancelled Ur Squamous Epith Cells Cancelled Ur Renal Epithelial Cell Cancelled Calcium Oxalate Crystal Cancelled Uric Acid Crystals Cancelled Triple Phos Crystals Cancelled Other Crystals Cancelled Amorphous Sediment Cancelled Urine Bacteria Cancelled Fine Granular Casts Cancelled Coarse Granular Casts Cancelled Waxy Casts Cancelled RBC Casts Cancelled WBC Casts Cancelled Urine Mucus Cancelled Urine Other Cancelled Urine Trichomonas Cancelled Urine Yeast Cancelled Urine Sperm Cancelled Ur Oval Fat Bodies Cancelled Urinalysis Comment Cancelled Urine HCG, Qual Cancelled SARS-CoV-2 RNA (SHELL) (NEGATIVE) 08/25/20 08/25/20 08/25/20 Range/Units 13:13 13:45 16:36 WBC (4.0-11.0) K/uL RBC (4.30-5.90) M/uL Hgb (12.0-16.0) g/dL Hct (36.0-46.0) % MCV (80.0-98.0) fL MCH (27.0-32.0) pg MCHC (31.0-37.0) g/dL RDW Std Deviation (28.0-62.0) fl RDW Coeff of Craig (11.0-15.0) % Plt Count (150-400) K/uL MPV (7.40-12.00) fL Neut % (Auto) (48.0-80.0) % Lymph % (Auto) (16.0-40.0) % [place] % (Auto) (0.0-15.0) % Eos % (Auto) (0.0-7.0) % Baso % (Auto) (0.0-1.5) % Neut # (Auto) (1.4-5.7) K/uL Lymph # (Auto) (0.6-2.4) K/uL [place] # (Auto) (0.0-0.8) K/uL Eos # (Auto) (0.0-0.7) K/uL Baso # (Auto) (0.0-0.1) K/uL Nucleated RBC % /100WBC Nucleated RBCs # K/uL Sodium 130 L (136-145) mmol/L Potassium 4.4 (3.5-5.1) mmol/L Chloride 100 (98-107) mmol/L Carbon Dioxide 23.1 (21.0-32.0) mmol/L BUN 33 H (7.0-18.0) mg/dL Creatinine 1.8 H (0.6-1.0) mg/dL Est Cr Clr Drug Dosing 39.54 mL/min Estimated GFR (MDRD) 29.5 ml/min Glucose 107 H (74-106) mg/dL Lactic Acid 1.6 (0.4-2.0) mmol/L Calcium 8.8 (8.5-10.1) mg/dL Total Bilirubin 0.5 (0.2-1.0) mg/dL AST 36 (15-37) IU/L ALT 47 (14-63) IU/L Alkaline Phosphatase 115 (46-116) U/L Total Protein 8.9 H (6.4-8.2) g/dL Albumin 3.4 (3.4-5.0) g/dL Globulin 5.5 H (2.6-4.0) g/dL Albumin/Globulin Ratio 0.6 L (0.9-1.6) Lipase 101 (73-393) U/L Urine Color Urine Appearance Urine pH Ur Specific [place] Urine Protein Urine Glucose (UA) Urine Ketones Urine Occult Blood Urine Nitrite Urine Bilirubin Urine Ictotest Urine Urobilinogen Ur Leukocyte Esterase U Hyaline Cast (Auto) Urine RBC Urine WBC Ur Epithelial Cells Ur Squamous Epith Cells Ur Renal Epithelial Cell Calcium Oxalate Crystal Uric Acid Crystals Triple Phos Crystals Other Crystals Amorphous Sediment Urine Bacteria Fine Granular Casts Coarse Granular Casts Waxy Casts RBC Casts WBC Casts Urine Mucus Urine Other Urine Trichomonas Urine Yeast Urine Sperm Ur Oval Fat Bodies Urinalysis Comment Urine HCG, Qual SARS-CoV-2 RNA (SHELL) NEGATIVE (NEGATIVE) 08/25/20 08/26/20 08/26/20 Range/Units 23:25 05:25 05:25 WBC 6.45 (4.0-11.0) K/uL RBC 4.69 (4.30-5.90) M/uL Hgb 14.4 (12.0-16.0) g/dL Hct 43.9 (36.0-46.0) % MCV 93.6 (80.0-98.0) fL MCH 30.7 (27.0-32.0) pg MCHC 32.8 (31.0-37.0) g/dL RDW Std Deviation 48.6 (28.0-62.0) fl RDW Coeff of Craig 14 (11.0-15.0) % Plt Count 227 (150-400) K/uL MPV 11.70 (7.40-12.00) fL Neut % (Auto) 52.0 (48.0-80.0) % Lymph % (Auto) 35.0 (16.0-40.0) % [place] % (Auto) 6.7 (0.0-15.0) % Eos % (Auto) 5.7 (0.0-7.0) % Baso % (Auto) 0.6 (0.0-1.5) % Neut # (Auto) 3.4 (1.4-5.7) K/uL Lymph # (Auto) 2.3 (0.6-2.4) K/uL [place] # (Auto) 0.4 (0.0-0.8) K/uL Eos # (Auto) 0.4 (0.0-0.7) K/uL Baso # (Auto) 0.0 (0.0-0.1) K/uL Nucleated RBC % 0.0 /100WBC Nucleated RBCs # 0 K/uL Sodium 134 L (136-145) mmol/L Potassium 4.1 (3.5-5.1) mmol/L Chloride 103 (98-107) mmol/L Carbon Dioxide 20.9 L (21.0-32.0) mmol/L BUN 31 H (7.0-18.0) mg/dL Creatinine 1.3 H (0.6-1.0) mg/dL Est Cr Clr Drug Dosing 54.74 mL/min Estimated GFR (MDRD) 43.0 ml/min Glucose 90 (74-106) mg/dL Lactic Acid (0.4-2.0) mmol/L Calcium 8.0 L (8.5-10.1) mg/dL Total Bilirubin 0.3 (0.2-1.0) mg/dL AST 28 (15-37) IU/L ALT 34 (14-63) IU/L Alkaline Phosphatase 89 (46-116) U/L Total Protein 7.3 (6.4-8.2) g/dL Albumin 2.8 L (3.4-5.0) g/dL Globulin 4.5 H (2.6-4.0) g/dL Albumin/Globulin Ratio 0.6 L (0.9-1.6) Lipase (73-393) U/L Urine Color YELLOW Urine Appearance CLEAR Urine pH 6.0 Ur Specific [place] >= 1.030 Urine Protein NEGATIVE Urine Glucose (UA) NEGATIVE Urine Ketones NEGATIVE Urine Occult Blood NEGATIVE Urine Nitrite NEGATIVE Urine Bilirubin NEGATIVE Urine Ictotest Urine Urobilinogen 0.2 Ur Leukocyte Esterase NEGATIVE U Hyaline Cast (Auto) Urine RBC Urine WBC Ur Epithelial Cells Ur Squamous Epith Cells Ur Renal Epithelial Cell Calcium Oxalate Crystal Uric Acid Crystals Triple Phos Crystals Other Crystals Amorphous Sediment Urine Bacteria Fine Granular Casts Coarse Granular Casts Waxy Casts RBC Casts WBC Casts Urine Mucus Urine Other Urine Trichomonas Urine Yeast Urine Sperm Ur Oval Fat Bodies Urinalysis Comment Urine HCG, Qual SARS-CoV-2 RNA (SHELL) (NEGATIVE) Result Diagrams: 08/26/20 05:25 08/26/20 05:25 Sepsis Event Note - Evaluation Sepsis Screening Result: No Definite Risk - Focused Exam Vital Signs: Vital Signs Temp Pulse Resp BP BP Pulse Ox 08/26/20 12:00 97.3 F 75 17 113/88 99 08/26/20 08:11 95/52 L 08/26/20 08:00 97.6 F 75 18 95/52 L 97 08/26/20 04:03 96.9 F 86 18 110/68 94 L - Problem List & Annotations (1) Abdominal pain SNOMED Code(s): 18121224 Code(s): R10.9 - UNSPECIFIED ABDOMINAL PAIN Status: Acute Current Visit: Yes (2) Intractable nausea and vomiting SNOMED Code(s): 917776703 Code(s): R11.2 - NAUSEA WITH VOMITING, UNSPECIFIED Status: Acute Current Visit: Yes (3) Partial small bowel obstruction SNOMED Code(s): 372848087 Code(s): K56.600 - PARTIAL INTESTINAL OBSTRUCTION, UNSPECIFIED TO CAUSE Status: Acute Current Visit: Yes - Problem List Review Problem List Initiated/Reviewed/Updated: Yes - My Orders Last 24 Hours: My Active Orders 08/25/20 18:12 Oxygen Therapy [RC] PRN Up ad Larisa [RC] ASDIRECTED VTE/DVT Education [RC] PER UNIT ROUTINE Vital Signs [RC] Q4H Morphine 2 mg IVPUSH Q2H PRN Ondansetron [Zofran ODT] 4 mg PO Q4H PRN Sequential Compression Device [OM.PC] Per Unit Routine Resuscitation Status Routine 08/25/20 18:13 Antiembolic Devices [RC] PER UNIT ROUTINE 08/25/20 18:15 Nicotine [Habitrol] 14 mg TRDERM DAILY 08/25/20 18:51 C DIFFICILE AG/TOXIN W/REFLEX [RM] Urgent 08/25/20 22:00 Heparin Sodium 5,000 units SUBCUT Q8H 08/26/20 00:05 Sodium Chloride 0.9% [Normal Saline] 1,000 ml IV ASDIRECTED 08/26/20 09:00 amLODIPine [Norvasc] 5 mg PO DAILY 08/27/20 05:11 CBC WITH AUTO DIFF [HEME] AM COMPREHENSIVE METABOLIC PN,CMP [CHEM] AM 08/28/20 05:11 CBC WITH AUTO DIFF [HEME] AM COMPREHENSIVE METABOLIC PN,CMP [CHEM] AM - Plan Plan:: Assessment: 1. Intractable nausea and vomiting in the setting of possible ileus versus enteritis versus partial small bowel obstruction 2. Leukocytosis:resolved 3. Hyponatremia:improving 4. KAYLEE:improving 5. Past medical history: Gastroplasty with history of adhesional lysis 6. Past medical history: Morbid obesity, hypertension, tobacco abuser x 30 years Plan 1. Abdominal pain/intractable nausea/vomiting: NO new episodes of emesis /diarrhea since admission; will advance to clear liquid diet and monitor. . May consider NG tube placement however patient is not experiencing significant abdominal pain and no distention noted on examination. Nausea and vomiting has improved. Stool studies have been ordered. UA: negative 2. Past medical history: Hypertension: Restart amlodipine; hold lisinopril/HCTZ in light of KAYLEE 3. KAYLEE: monitor for response w. IV hydration
[2020-08-27] MEDS: Sodium Chloride 0.9% 1,000 ML IV SCH ×2 (03:04→10:45)
[2020-08-27] MEDS: Heparin Sodium 5,000 Units/ML Vial SUBCUT SCH (06:34)
[2020-08-27 06:40] LABS: BLOOD UREA NITROGEN,BUN 17 mg/dL (7.0-18.0); CARBON DIOXIDE,CO2 24.5 mmol/L (21.0-32.0); CHLORIDE,CL 109 mmol/L (98-107); GLUCOSE RANDOM 90 mg/dL (74-106); SODIUM,NA 139 mmol/L (136-145)
[2020-08-27] MEDS: amLODIPine 5 MG Tab PO SCH (08:00)
[2020-08-27] MEDS: Nicotine 14 MG/24 Hr Patch TRDERM SCH (08:01)
--- NOTE | 2020-08-27 12:16 | PCM.DCSUM1 ---
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 She presenting to the ED with one day history of nausea, vomiting and diarrhea. Work up included WBC of 13,900 and creatinine of 1.8. CT scan showed borderline dilated fluid-filled loops of small bowel within the mid abdomen without a transition point. Patient was treated with IV fluids and bowel rest. Her symptoms of nausea and vomiting quickly resolved. Her leukocystosis and creatinine normalized. She was advanced to an oral diet which she tolerated well. Today she is requesting discharge home. She was instructed to discontinue the Bactrim she was taking before admission for breast cellulitis as she already had been on it for over five days and her cellulitis had resolved. She was also instructed to hold her HCTZ- Lisinopril as her blood pressures without this medication were in the 90s-120s systolic during her hospital stay. She was instructed to take her blood pressure daily at home because as she recovers her blood pressure may increase. She is to follow up in clinic with Fransisca Joy. - Patient Instructions Diet: Usual Diet as Tolerated Activity: As Tolerated Notify Provider of: Fever, Increased Pain, Nausea and/or Vomiting Other/Special Instructions: Check blood pressure daily - Discharge Plan Home Medications: Home Meds amLODIPine [Norvasc] 5 mg PO DAILY 08/25/20 [History] Patient Handouts: Bowel Obstruction, [id number] Referrals: Fransisca Joy NP [Primary Care Provider] - 09/12/20 9:15 am - Discharge Summary/Plan Comment DC Time >30 min.: No - Patient Data Vitals - Most Recent: Last Vital Signs Temp 37.0 C 08/27/20 11:39 Pulse 76 08/27/20 11:39 Resp 18 08/27/20 11:39 BP 98/65 08/27/20 11:39 Pulse Ox 94 L 08/27/20 11:39 Weight - Most Recent: 117.526 kg I&O - Last 24 hours: Intake & Output 08/26/20 08/27/20 08/27/20 22:59 06:59 14:59 Intake Total 2030 2138 Output Total 1100 600 Balance 930 1538 Lab Results - Last 24 hrs: Laboratory Results - last 24 hr 08/27/20 08/27/20 Range/Units 05:39 05:39 WBC 6.98 (4.0-11.0) K/uL RBC 4.36 (4.30-5.90) M/uL Hgb 13.4 (12.0-16.0) g/dL Hct 41.2 (36.0-46.0) % MCV 94.5 (80.0-98.0) fL MCH 30.7 (27.0-32.0) pg MCHC 32.5 (31.0-37.0) g/dL RDW Std Deviation 48.6 (28.0-62.0) fl RDW Coeff of Craig 14 (11.0-15.0) % Plt Count 226 (150-400) K/uL MPV 11.60 (7.40-12.00) fL Neut % (Auto) 37.7 L (48.0-80.0) % Lymph % (Auto) 41.5 H (16.0-40.0) % Rogers % (Auto) 11.9 (0.0-15.0) % Eos % (Auto) 8.0 H (0.0-7.0) % Baso % (Auto) 0.9 (0.0-1.5) % Neut # (Auto) 2.6 (1.4-5.7) K/uL Lymph # (Auto) 2.9 H (0.6-2.4) K/uL Rogers # (Auto) 0.8 (0.0-0.8) K/uL Eos # (Auto) 0.6 (0.0-0.7) K/uL Baso # (Auto) 0.1 (0.0-0.1) K/uL Nucleated RBC % 0.0 /100WBC Nucleated RBCs # 0 K/uL Sodium 139 (136-145) mmol/L Potassium 4.0 (3.5-5.1) mmol/L Chloride 109 H (98-107) mmol/L Carbon Dioxide 24.5 (21.0-32.0) mmol/L BUN 17 (7.0-18.0) mg/dL Creatinine 0.8 (0.6-1.0) mg/dL Est Cr Clr Drug Dosing 88.95 mL/min Estimated GFR (MDRD) > 60.0 ml/min Glucose 90 (74-106) mg/dL Calcium 7.7 L (8.5-10.1) mg/dL Total Bilirubin 0.2 (0.2-1.0) mg/dL AST 32 (15-37) IU/L ALT 35 (14-63) IU/L Alkaline Phosphatase 82 (46-116) U/L Total Protein 6.9 (6.4-8.2) g/dL Albumin 2.5 L (3.4-5.0) g/dL Globulin 4.4 H (2.6-4.0) g/dL Albumin/Globulin Ratio 0.6 L (0.9-1.6) JEREL Results - Last 24 hrs: Microbiology 08/25/20 12:56 Shiga Toxin I & II - Final Stool / Feces 08/26/20 18:45 C. difficile Antigen & Toxins A,B - Final Stool / Feces 08/25/20 13:30 Aerobic Blood Culture - Preliminary Blood - Venous - Lab Draw NO GROWTH AFTER 1 DAY Anaerobic Blood Culture - Preliminary NO GROWTH AFTER 1 DAY 08/25/20 13:12 Aerobic Blood Culture - Preliminary Blood - Venous NO GROWTH AFTER 1 DAY Anaerobic Blood Culture - Preliminary NO GROWTH AFTER 1 DAY Med Orders - Current: Current Medications Amlodipine Besylate (Amlodipine 5 Mg Tab) 5 mg PO DAILY [facility] Last Admin: 08/27/20 08:00 Dose: 5 mg Documented by: Heparin Sodium (Porcine) (Heparin Sodium 5,000 Units/Ml Vial) 5,000 units SUBCUT Q8H [facility] Last Admin: 08/27/20 06:34 Dose: 5,000 units Documented by: Sodium Chloride (Normal Saline) 1,000 mls @ 125 mls/hr IV ASDIRECTED [facility] Last Admin: 08/27/20 10:45 Dose: 125 mls/hr Documented by: Nicotine (Nicotine 14 Mg/24 Hr Patch) 14 mg TRDERM DAILY [facility] Last Admin: 08/27/20 08:01 Dose: Not Given Documented by: Ondansetron HCl (Ondansetron 4 Mg Tab.Dis) 4 mg PO Q4H PRN PRN Reason: nausea, able to take PO Discontinued Medications Sodium Chloride (Normal Saline) 1,000 mls @ 999 mls/hr IV STAT ONE Stop: 08/25/20 14:01 Last Admin: 08/25/20 13:31 Dose: 999 mls/hr Documented by: Ceftriaxone Sodium/Dextrose 1 (gm/ Premix) 50 mls @ 100 mls/hr IV ONETIME ONE Stop: 08/25/20 15:30 Last Admin: 08/25/20 15:37 Dose: Not Given Documented by: Sodium Chloride (Normal Saline) 1,000 mls @ 125 mls/hr IV STAT ONE Stop: 08/25/20 23:00 Last Admin: 08/25/20 15:39 Dose: 125 mls/hr Documented by: Ketorolac Tromethamine (Ketorolac 15 Mg/Ml Sdv) 15 mg IVPUSH ONETIME ONE Stop: 08/25/20 17:01 Last Admin: 08/25/20 17:24 Dose: 15 mg Documented by: Morphine Sulfate (Morphine 4 Mg/Ml Syringe) 4 mg IVPUSH ONETIME ONE Stop: 08/25/20 13:06 Last Admin: 08/25/20 13:31 Dose: 4 mg Documented by: Morphine Sulfate (Morphine 2 Mg/Ml Syringe) 2 mg IVPUSH Q2H PRN PRN Reason: Pain (severe 7-10) Stop: 08/26/20 18:13 Ondansetron HCl (Ondansetron 4 Mg/2 Ml Sdv) 4 mg IVPUSH ONETIME ONE Stop: 08/25/20 13:06 Last Admin: 08/25/20 13:31 Dose: 4 mg Documented by:
== END 2020-08-27 12:25 | disposition home or self-care (01) ==
LOC: MW.ED 12:53 → MW.MS 17:55
PROVIDERS: ADMIT Internal Medicine; ATTEND Internal Medicine
DX: R11.2 Nausea with vomiting, unspecified (principal); R19.7 Diarrhea, unspecified; R10.9 Unspecified abdominal pain; I10 Essential (primary) hypertension; F17.210 Nicotine dependence, cigarettes, uncomplicated; D72.829 Elevated white blood cell count, unspecified; E87.1 Hypo-osmolality and hyponatremia; N17.9 Acute kidney failure, unspecified; Z98.890 Other specified postprocedural states; Z79.899 Other long term (current) drug therapy; Z20.822 Contact with and (suspected) exposure to COVID-19
CPT/HCPCS: 36415; 74176; 80053; 81003; 83605; 83690; 85025; 87040; 87045; 87046; 87324; 87449; 87635; 87899; 93005; 96374; 96375; 99285; A9270; J1644; J1885; J2270; J2405; J7030; 96372; 96376; 99284; G0378; U0002

== ENCOUNTER 2021-05-31 06:48 | Day surgery (SDC) | payer BC ==
[~2021-05-31 06:48] MED LIST: Acetaminophen 1,000 MG in Premix Bag 1 BAG IV ONE; Acetaminophen 1,000 MG in Premix Bag 1 BAG IV SCH; Lactated Ringers 1,000 ML IV SCH; Pregabalin 75 MG Cap PO ONE; Pregabalin 75 MG Cap PO SCH; ceFAZolin 2 GM in Premix Bag 1 BAG IV ONE; ceFAZolin 2 GM in Premix Bag 1 BAG IV SCH
[2021-05-31] MEDS ORDERED: Dexmedetomidine 200 MCG/2 ML SDV ONE (07:23)
[2021-05-31] MEDS ORDERED: Propofol 200 MG/20 ML SDV ONE (07:23)
[2021-05-31] MEDS ORDERED: Dexamethasone 4 MG/ML 5 ML MDV ONE (07:23)
[2021-05-31] MEDS ORDERED: Lidocaine 2% 5 ML SDV ONE (07:23)
[2021-05-31] MEDS ORDERED: fentaNYL 100 MCG/2 ML SDV ONE ×2 (07:24→10:36)
[2021-05-31] MEDS ORDERED: Midazolam 1 MG/ML 2 ML SDV ONE (07:24)
[2021-05-31] MEDS ORDERED: Esmolol 100 MG/10 ML SDV ONE (07:24)
[2021-05-31] MEDS ORDERED: Water For Injection, Sterile 20 ML ONE (07:28)
[2021-05-31] MEDS ORDERED: Bupivacaine 0.5% 30 ML SDV ONE (07:30)
[2021-05-31] MEDS ORDERED: Octyl 2-Cyanoacrylate 1 Tube ONE ×2 (07:30→10:50)
[2021-05-31] MEDS ORDERED: Rocuronium Bromide 50 MG/5 ML Syringe ONE ×2 (07:33→07:40)
[2021-05-31] MEDS ORDERED: HYDROmorphone 1 MG/ML Syringe IVPUSH PRN ×2 (07:40→11:05)
[2021-05-31] MEDS ORDERED: Ondansetron 4 MG/2 ML SDV IVPUSH PRN ×2 (07:40→11:05)
[2021-05-31] MEDS ORDERED: Metoclopramide 10 MG/2 ML SDV IVPUSH PRN (07:40)
[2021-05-31] MEDS ORDERED: fentaNYL 100 MCG/2 ML SDV IVPUSH PRN (07:40)
[2021-05-31] MEDS ORDERED: Naloxone 0.4 MG/ML SDV IVPUSH PRN (07:40)
[2021-05-31] MEDS ORDERED: Albuterol 0.083% 2.5 MG/3 ML Neb Soln NEB PRN (07:40)
[2021-05-31] MEDS ORDERED: Ropivacaine 0.5% 5 MG/ML 30 ML SDV ONE (07:55)
[2021-05-31] MEDS ORDERED: ceFAZolin 1 GM Vial ONE (08:22)
[2021-05-31] MEDS ORDERED: Ketamine HCL/NACL, ISO-OSM 50 MG/5 ML Syringe ONE (08:46)
[2021-05-31] MEDS ORDERED: Sugammadex Sodium 200 MG/2 ML VIAL ONE (09:49)
[2021-05-31] MEDS ORDERED: Ketorolac 30 MG/ML SDV ONE (09:49)
[2021-05-31] MEDS ORDERED: Ondansetron 4 MG/2 ML SDV ONE (09:49)
[2021-05-31] MEDS: Acetaminophen/HYDROcodone 325-5 MG Tab PO PRN (20:16)
[2021-06-01] MEDS: Acetaminophen/HYDROcodone 325-5 MG Tab PO PRN ×3 (01:12→09:34)
[2021-06-01] MEDS ORDERED: amLODIPine 5 MG Tab PO SCH (09:00)
== END 2021-06-01 14:00 | disposition home or self-care (01) ==
LOC: MW.SDS 06:48 → MW.MS 11:19 → MW.SDS 06-01 14:00
PROVIDERS: ATTEND Surgery
DX: K43.2 Incisional hernia without obstruction or gangrene (principal); I10 Essential (primary) hypertension; F17.210 Nicotine dependence, cigarettes, uncomplicated; E66.9 Obesity, unspecified; E55.9 Vitamin D deficiency, unspecified; Z79.899 Other long term (current) drug therapy; Z98.890 Other specified postprocedural states; Z68.38 Body mass index [BMI] 38.0-38.9, adult
CPT/HCPCS: 49654; A9270; C1781; J0131; J0690; J1100; J1170; J1885; J2250; J2370; J2405; J2704; J2795; J3010; J3490; J7120; 00790; 64488

== ENCOUNTER 2022-06-23 06:17 | Emergency (ER) | payer BC ==
[2022-06-23] MEDS ORDERED: Sodium Chloride 0.9% 2.5 ML Syringe FLUSH PRN (06:40)
[2022-06-23] MEDS ORDERED: Sodium Chloride 0.9% 10 ML Syringe FLUSH PRN (06:40)
[2022-06-23] MEDS ORDERED: Morphine 4 MG/ML Syringe IVPUSH ONE (06:41)
[2022-06-23] MEDS ORDERED: Ondansetron 4 MG/2 ML SDV IVPUSH ONE (06:41)
[2022-06-23 07:08] LABS: CARBON DIOXIDE,CO2 25.8 mmol/L (21.0-32.0); POTASSIUM,K 4.5 mmol/L (3.5-5.1)
[2022-06-23] MEDS ORDERED: Iopamidol 755 MG/ML 500 ML Multipack Bottle IVPUSH ONE ×2 (07:10→07:31)
== END 2022-06-23 08:47 | disposition home or self-care (01) ==
LOC: MW.ED 06:17
DX: S30.1XXA Contusion of abdominal wall, initial encounter (principal); I10 Essential (primary) hypertension; E66.9 Obesity, unspecified; Z68.37 Body mass index [BMI] 37.0-37.9, adult; Z79.899 Other long term (current) drug therapy; W01.0XXA Fall on same level from slipping, tripping and stumbling without subsequent striking against object, initial encounter
CPT/HCPCS: 36415; 71046; 74177; 80053; 81001; 84484; 85025; 93005; 96374; 96375; 99284; J2270; J2405; J3490; Q9967; 93010

== ENCOUNTER 2022-06-30 11:48 | Emergency (ER) | payer BC ==
[2022-06-30] MEDS ORDERED: Sodium Chloride 0.9% 2.5 ML Syringe FLUSH PRN (12:17)
[2022-06-30] MEDS ORDERED: Sodium Chloride 0.9% 10 ML Syringe FLUSH PRN (12:17)
[2022-06-30] MEDS ORDERED: Sodium Chloride 0.9% 1,000 ML IV STA (12:18)
[2022-06-30] MEDS ORDERED: Ketorolac 30 MG/ML SDV IVPUSH STA (12:45)
[2022-06-30 13:03] LABS: CARBON DIOXIDE,CO2 28.1 mmol/L (21.0-32.0); POTASSIUM,K 3.8 mmol/L (3.5-5.1)
[2022-06-30] MEDS ORDERED: Morphine 4 MG/ML Syringe IVPUSH STA (14:20)
== END 2022-06-30 15:23 | disposition home or self-care (01) ==
LOC: MW.ED 11:48
DX: R16.0 Hepatomegaly, not elsewhere classified (principal); F10.10 Alcohol abuse, uncomplicated; I10 Essential (primary) hypertension; E66.9 Obesity, unspecified; Z72.0 Tobacco use; Z68.36 Body mass index [BMI] 36.0-36.9, adult
CPT/HCPCS: 36415; 76705; 80053; 83690; 83735; 85025; 96361; 96374; 96375; 99284; J1885; J2270; J3490; J7030

== ENCOUNTER 2022-07-25 06:37 | Day surgery (SDC) | payer BC ==
[~2022-07-25 06:37] MED LIST changes: -Acetaminophen 1,000 MG in Premix Bag 1 BAG IV ONE; -Acetaminophen 1,000 MG in Premix Bag 1 BAG IV SCH; -Pregabalin 75 MG Cap PO ONE; -Pregabalin 75 MG Cap PO SCH; -ceFAZolin 2 GM in Premix Bag 1 BAG IV ONE; -ceFAZolin 2 GM in Premix Bag 1 BAG IV SCH
[2022-07-25] MEDS ORDERED: Propofol 200 MG/20 ML SDV ONE (07:28)
[2022-07-25] MEDS ORDERED: fentaNYL 100 MCG/2 ML SDV ONE (07:28)
[2022-07-25] MEDS ORDERED: Lidocaine 2% 5 ML SDV ONE (07:28)
== END 2022-07-25 09:10 | disposition home or self-care (01) ==
LOC: MW.SDS 06:37
PROVIDERS: ATTEND Surgery
DX: Z12.11 Encounter for screening for malignant neoplasm of colon (principal); K63.5 Polyp of colon; K43.2 Incisional hernia without obstruction or gangrene; E78.5 Hyperlipidemia, unspecified; I10 Essential (primary) hypertension; F17.210 Nicotine dependence, cigarettes, uncomplicated; Z79.899 Other long term (current) drug therapy
CPT/HCPCS: 45380; J2704; J3010; J7120; J3490

== ENCOUNTER 2022-09-05 08:21 | Day surgery (SDC) | payer BC ==
[~2022-09-05 08:21] MED LIST changes: +Acetaminophen 1,000 MG in Premix Bag 1 BAG IV SCH; +Albuterol 0.083% 2.5 MG/3 ML Neb Soln NEB PRN; +HYDROmorphone 1 MG/ML Syringe IVPUSH PRN; +Metoclopramide 10 MG/2 ML SDV IVPUSH PRN; +Morphine 2 MG/ML SYRINGE IVPUSH PRN; +Naloxone 0.4 MG/ML SDV IVPUSH PRN; +Ondansetron 4 MG/2 ML SDV IVPUSH PRN; +Pregabalin 75 MG Cap PO SCH; +Scopolamine 1.5 MG Transdermal Patch TOP ONE; +droPERidol 5 MG/2 ML SDV IVPUSH PRN; +fentaNYL 50 MCG/ML SDV IVPUSH PRN
[2022-09-05] MEDS ORDERED: Bupivacaine 0.25% 30 ML SDV ONE (10:03)
[2022-09-05] MEDS ORDERED: Dexmedetomidine 200 MCG/2 ML SDV ONE (10:05)
[2022-09-05] MEDS ORDERED: Water For Injection, Sterile 20 ML ONE (10:05)
[2022-09-05] MEDS ORDERED: fentaNYL 100 MCG/2 ML SDV ONE (10:10)
[2022-09-05] MEDS ORDERED: Propofol 200 MG/20 ML SDV ONE (10:10)
[2022-09-05] MEDS ORDERED: Bupivacaine 0.5% 30 ML SDV ONE (10:12)
[2022-09-05] MEDS ORDERED: Rocuronium Bromide 50 MG/5 ML Syringe ONE (10:16)
[2022-09-05] MEDS ORDERED: ceFAZolin 1 GM Vial ONE ×2 (10:51)
[2022-09-05] MEDS ORDERED: Lidocaine 2% 100 MG/5 ML Syringe ONE (10:51)
[2022-09-05] MEDS ORDERED: Magnesium Sulfate (4.06 MEQ/ML) 5 GM/10 ML SDV ONE (10:51)
[2022-09-05] MEDS ORDERED: Ondansetron 4 MG/2 ML SDV ONE (10:51)
[2022-09-05] MEDS ORDERED: Esmolol 100 MG/10 ML SDV ONE (10:52)
[2022-09-05] MEDS ORDERED: fentaNYL 250 MCG/5 ML SDV ONE (11:12)
[2022-09-05] MEDS ORDERED: ePHEDrine 50 MG/ML SDV ONE (11:27)
[2022-09-05] MEDS ORDERED: Dexamethasone 4 MG/ML 5 ML MDV ONE (11:29)
[2022-09-05] MEDS ORDERED: ceFAZolin 2 GM in Sodium Chloride 0.9% 50 ML IV ONE (11:53)
[2022-09-05] MEDS ORDERED: Ketorolac 30 MG/ML SDV ONE (11:55)
[2022-09-05] MEDS ORDERED: Sugammadex Sodium 200 MG/2 ML VIAL ONE (11:55)
[2022-09-05] MEDS ORDERED: Acetaminophen/HYDROcodone 325-5 MG Tab ONE (15:19)
[2022-09-05] MEDS ORDERED: Acetaminophen/HYDROcodone 325-5 MG Tab PO ONE (15:36)
== END 2022-09-05 15:30 | disposition home or self-care (01) ==
LOC: MW.SDS 08:21
PROVIDERS: ATTEND Surgery
DX: K43.9 Ventral hernia without obstruction or gangrene (principal); E78.00 Pure hypercholesterolemia, unspecified; I10 Essential (primary) hypertension; E66.9 Obesity, unspecified; F17.210 Nicotine dependence, cigarettes, uncomplicated; Z53.31 Laparoscopic surgical procedure converted to open procedure; Z79.899 Other long term (current) drug therapy; Z98.890 Other specified postprocedural states; Z98.51 Tubal ligation status
CPT/HCPCS: 49593; A9270; C1781; J0690; J1100; J1885; J2405; J2704; J3010; J3475; J3490; J7120